=== PATIENT | female | born 1995 | race African-American/Black ===

== ENCOUNTER 2018-08-29 14:34 | Inpatient (IN) | payer BC, OTHER ==
[~2018-08-29] VITALS: Ht 170.2 cm; Wt 124.7 kg
[2018-08-29 15:34] LABS: Urine Bacteria NONE SEEN /hpf (None Seen); Urine Blood Negative /uL (Negative); Urine Specific Gravity 1.027 (1.001-1.035); Urine WBC 7 /hpf (0 - 5)
[2018-08-29 15:39] LABS: Albumin 4.2 g/dL (3.4-5.0); BUN/Creatinine Ratio 6.6; Calcium 9.8 mg/dL (8.5-10.1)
[2018-08-29 15:42] LABS: Urine Budding Yeast Few /hpf (None Seen)
[2018-08-29 15:48] LABS: Bilirubin, Total 0.9 mg/dL (0.2-1.0)
[2018-08-29 15:57] LABS: Basophils # (auto) 0 uL; Basophils % (auto) 0.4 % (0.0-2.0); Eosinophils # (auto) 0.1 uL; Eosinophils % (auto) 0.5 % (0.0-7.0); Hematocrit 48.9 % (36.0-46.0); Hemoglobin 16.4 g/dL (12.2-16.2); Lymphocytes # (auto) 2.6 uL; Lymphocytes % (auto) 20.7 % (10.0-50.0); Mean Corpuscular Hemoglobin 27.7 pg (28.0-32.0); Mean Corpuscular Hgb Conc. 33.6 g/dL (32.0-36.0); Mean Corpuscular Volume 82.6 fL (80.0-100.0); Monocytes # (auto) 0.8 uL; Monocytes % (auto) 6.3 % (0.0-12.0); Neutrophils % (auto) 72.1 % (37.0-80.0); Nucleated Red Blood Cells % 0.2 %; Platelet Count (auto) 149 10^3/uL (140-450); Red Blood Cells 5.92 10^6/uL (4.0-5.20); Red Cell Distribution Width 13.4 % (11.8-14.3); White Blood Cell 12.5 10^3/uL (4.4-10.8)
[2018-08-29] MEDS ORDERED: SODIUM CHLORIDE 0.9% 1,000 ML IV ONE ×2 (16:04)
[2018-08-29] MEDS ORDERED: InsuLIN REG 1unit/0.01ml Soln (100units/ml) IV ONE (16:15)
[2018-08-29 16:30] LABS: INR 0.97 (0.9-1.15); Prothrombin Time 10.4 sec (9.27-12.13)
[2018-08-29] MEDS ORDERED: PIPERACILLIN-TAZOB 3.375GM 100 ML IV ONE (17:15)
[2018-08-29] MEDS ORDERED: NITROGLYCERIN 0.4 MG SL TAB SL PRN (18:00)
[2018-08-29] MEDS ORDERED: MORPHINE SULFATE 4 MG/ML SYR/VIAL IV PRN (18:00)
[2018-08-29] MEDS ORDERED: TEMAZEPAM 15 MG CAP PO PRN (18:00)
[2018-08-29] MEDS ORDERED: DEXTROSE (50%) 50ML SYRG IV PRN (18:00)
[2018-08-29] MEDS ORDERED: ACETAMINOPHEN 500 MG TAB PO PRN (18:00)
[2018-08-29] MEDS ORDERED: ONDANSETRON HCL 4 MG/2 ML VIAL IV PRN (18:00)
[2018-08-29] MEDS ORDERED: cefTRIAXone 1GM/50ML D5W 50 ML IV ONE (18:00)
[2018-08-29] MEDS ORDERED: LORazepam 0.5 MG TAB PO PRN (18:00)
[2018-08-29] MEDS ORDERED: LACTULOSE 20Gm/30ML SOLN PO PRN (18:00)
[2018-08-29 18:33] LABS: Amylase 74 U/L (25-115); Lipase 210 U/L (73-393)
[2018-08-29] MEDS: SODIUM CHLORIDE 0.9% 1,000 ML IV SCH (19:47)
[2018-08-29] MEDS: InsuLIN REG 1unit/0.01ml Soln (100units/ml) SC SCH (20:00)
[2018-08-29] MEDS: ACCU-CHEK COMFORT CURVE STRIP VI SCH (20:01)
[2018-08-29 21:48] VITALS: BP 127/89
[2018-08-29] MEDS: INSULIN LANTUS (GLARGINE) 1 /0.01ml (100units/ml) SC SCH (22:15)
[2018-08-30] MEDS: ACCU-CHEK COMFORT CURVE STRIP VI SCH ×3 (00:22→07:57)
[2018-08-30] MEDS: InsuLIN REG 1unit/0.01ml Soln (100units/ml) SC SCH ×3 (00:22→07:58)
[2018-08-30] MEDS: SODIUM CHLORIDE 0.9% 1,000 ML IV SCH ×2 (00:23→07:58)
[2018-08-30 00:53] VITALS: BP 127/89
[2018-08-30] MEDS ORDERED: INSLANTI SC (04:36)
[2018-08-30 04:45] VITALS: BP 130/78
[2018-08-30 05:48] LABS: Basophils # (auto) 0.1 uL; Basophils % (auto) 0.6 % (0.0-2.0); Eosinophils # (auto) 0.1 uL; Eosinophils % (auto) 1.2 % (0.0-7.0); Hematocrit 42.9 % (36.0-46.0); Hemoglobin 14.8 g/dL (12.2-16.2); Lymphocytes # (auto) 2.4 uL; Lymphocytes % (auto) 26.6 % (10.0-50.0); Mean Corpuscular Hemoglobin 28.3 pg (28.0-32.0); Mean Corpuscular Hgb Conc. 34.5 g/dL (32.0-36.0); Mean Corpuscular Volume 81.9 fL (80.0-100.0); Monocytes # (auto) 0.7 uL; Monocytes % (auto) 7.6 % (0.0-12.0); Neutrophils # (auto) 5.8 uL; Nucleated Red Blood Cells % 0.1 %; Platelet Count (auto) 107 10^3/uL (140-450); Red Blood Cells 5.24 10^6/uL (4.0-5.20); Red Cell Distribution Width 13.4 % (11.8-14.3)
[2018-08-30 06:13] LABS: Cholesterol 253 mg/dL (< 200)
[2018-08-30 06:15] LABS: HDL Cholesterol 39 mg/dL (40-59); LDL Cholesterol 182 mg/dL (< 100); Triglycerides 306 mg/dL (< 150)
[2018-08-30 09:00] VITALS: BP 133/69
[2018-08-30] MEDS ORDERED: cefTRIAXone 1GM/50ML D5W 50 ML IV SCH (09:00)
[2018-08-30] MEDS ORDERED: PANTOPRAZOLE 40 MG TAB PO SCH (10:00)
[2018-08-30] MEDS: INSULIN LANTUS (GLARGINE) 1 /0.01ml (100units/ml) SC SCH (10:24)
== END 2018-08-30 10:55 | disposition home or self-care (01) | DRG 638 ==
LOC: ER 14:34 → TELE 14:35 → TELE-WESTW 20:10
PROVIDERS: ADMIT Internal Medicine; ATTEND Internal Medicine
DX: E11.65 Type 2 diabetes mellitus with hyperglycemia (principal); N30.01 Acute cystitis with hematuria; Z68.41 Body mass index [BMI] 40.0-44.9, adult; E66.01 Morbid (severe) obesity due to excess calories; J45.909 Unspecified asthma, uncomplicated; I10 Essential (primary) hypertension; Z82.49 Family history of ischemic heart disease and other diseases of the circulatory system; Z82.5 Family history of asthma and other chronic lower respiratory diseases; Z83.3 Family history of diabetes mellitus; Z91.19 Patient's noncompliance with other medical treatment and regimen
CPT/HCPCS: 36415; 71046; 80053; 80061; 81001; 82010; 82150; 82962; 83036; 83690; 84484; 85025; 85610; 85652; 85730; 87040; 87081; 87086; 96365; 96375; G0378; J0696; J1815; J2543

== ENCOUNTER 2019-03-02 07:17 | Emergency (ER) | payer BC, OTHER ==
[~2019-03-02] VITALS: Ht 162.6 cm; Wt 120.2 kg
[~2019-03-02 07:17] MED LIST: INSLANTI SC
[2019-03-02 08:11] LABS: Basophils # (auto) 0.1 uL; Basophils % (auto) 0.6 % (0.0-2.0); Eosinophils # (auto) 0 uL; Eosinophils % (auto) 0.5 % (0.0-7.0); Hematocrit 46.8 % (36.0-46.0); Hemoglobin 15.7 g/dL (12.2-16.2); Lymphocytes % (auto) 11.6 % (10.0-50.0); Mean Corpuscular Hemoglobin 27.7 pg (28.0-32.0); Mean Corpuscular Hgb Conc. 33.5 g/dL (32.0-36.0); Mean Corpuscular Volume 82.8 fL (80.0-100.0); Monocytes # (auto) 0.4 uL; Monocytes % (auto) 4.2 % (0.0-12.0); Neutrophils # (auto) 7.4 uL; Neutrophils % (auto) 83.1 % (37.0-80.0); Platelet Count (auto) 132 10^3/uL (140-450); Red Blood Cells 5.66 10^6/uL (4.0-5.20); Red Cell Distribution Width 13.5 % (11.8-14.3); White Blood Cell 8.9 10^3/uL (4.4-10.8)
[2019-03-02] MEDS ORDERED: SODIUM CHLORIDE 0.9% 1,000 ML IVB ONE (08:18)
[2019-03-02 08:23] LABS: Potassium 4.1 mmol/L (3.5-5.1)
[2019-03-02 08:26] LABS: Albumin 3.9 g/dL (3.4-5.0); Calcium 9.2 mg/dL (8.5-10.1)
[2019-03-02 08:28] LABS: BUN/Creatinine Ratio 8.6
[2019-03-02] MEDS ORDERED: KETOROLAC TROMETH 30 MG/ML 1ML VIAL IV ONE (08:30)
[2019-03-02] MEDS ORDERED: PROMETHAZINE HCL 25 MG/ML 1ML IV ONE (08:30)
[2019-03-02] MEDS ORDERED: PROMETHAZINE HCL 25 MG/ML 1ML IV PRN (08:30)
[2019-03-02 08:31] LABS: Bilirubin, Total 0.5 mg/dL (0.2-1.0); Total Protein 8.3 g/dL (6.4-8.2)
[2019-03-02 09:26] LABS: Urine Bacteria NONE SEEN /hpf (None Seen); Urine Blood Negative /uL (Negative); Urine Specific Gravity 1.024 (1.001-1.035); Urine WBC 2 /hpf (0 - 5)
[2019-03-02] MEDS ORDERED: InsuLIN REG 1unit/0.01ml Soln (100units/ml) IV ONE (11:45)
[2019-03-02 13:04] VITALS: BP 93/61
[2019-03-02] MEDS ORDERED: INSULIN LISPRO (HUMAN) 100 UNITS/ML ML SC ONE (14:00)
== END 2019-03-02 15:08 | disposition home or self-care (01) ==
LOC: ER 07:17
DX: K52.9 Noninfective gastroenteritis and colitis, unspecified (principal); E11.65 Type 2 diabetes mellitus with hyperglycemia; I10 Essential (primary) hypertension; E66.9 Obesity, unspecified; J45.909 Unspecified asthma, uncomplicated; E11.9 Type 2 diabetes mellitus without complications; Z68.42 Body mass index [BMI] 45.0-49.9, adult
CPT/HCPCS: 36415; 80053; 81001; 81025; 82150; 82962; 83690; 83735; 85025; 96361; 96372; 96374; 96375; 99283; J1815; J1885; J2550; J7030

== ENCOUNTER 2019-12-03 17:06 | Emergency (ER) | payer BC, OTHER ==
[~2019-12-03] VITALS: Ht 167.6 cm; Wt 117.9 kg
[2019-12-03 17:15] VITALS: BP 126/88
[2019-12-03] MEDS: KETOROLAC TROMETH 15 mg/ml 1ML VL IM ONE (20:19)
[2019-12-03] MEDS: LIDOCAINE 1% HCL (LOCAL ANESTH.) INJ 20ML MDV IJ ONE (20:20)
[2019-12-03] MEDS: cefTRIAXone SOD 1,000 MG VL IM ONE (20:20)
== END 2019-12-03 20:58 | disposition home or self-care (01) ==
LOC: ER 17:13
DX: L02.31 Cutaneous abscess of buttock (principal); E11.9 Type 2 diabetes mellitus without complications; I10 Essential (primary) hypertension; J45.909 Unspecified asthma, uncomplicated
CPT/HCPCS: 96372; 99283; J0696; J1885; J2001

== ENCOUNTER → 2019-12-05 | Outpatient (CLI) | payer BC, OTHER ==
[2019-12-05 11:50] LABS: Cholesterol 229 mg/dL (< 200); HDL Cholesterol 37 mg/dL (40-59); LDL Cholesterol 160 mg/dL (< 100); Triglycerides 225 mg/dL (< 150)
== END | disposition home or self-care (01) ==
LOC: LAB 10:18
PROVIDERS: ATTEND Internal Medicine
DX: E11.9 Type 2 diabetes mellitus without complications (principal)
CPT/HCPCS: 36415; 80061; 82043; 83036; 84443

== ENCOUNTER 2020-12-10 16:14 | Inpatient (IN) | payer BC, MEDICAID, OTHER ==
[~2020-12-10] VITALS: Ht 167.6 cm; Wt 120.1 kg
[2020-12-10 17:03] LABS: Basophils # (auto) 0.1 10 ^3/uL (0-0.2); Eosinophils # (auto) 0 10 ^3/uL (0-0.8); Lymphocytes # (auto) 1.3 10 ^3/uL (0.4-5.4); Nucleated Red Blood Cells % 0.1 %
[2020-12-10 17:05] LABS: Basophils % (auto) 0.7 % (0.0-2.0); Eosinophils % (auto) 0.2 % (0.0-7.0); Hematocrit 38.4 % (36.0-46.0); Lymphocytes % (auto) 8.1 % (10.0-50.0); Mean Corpuscular Hemoglobin 26.8 pg (28.0-32.0); Mean Corpuscular Hgb Conc. 33.9 g/dL (32.0-36.0); Mean Corpuscular Volume 79.1 fL (80.0-100.0); Monocytes # (auto) 1.3 10 ^3/uL (0-1.3); Monocytes % (auto) 7.9 % (0.0-12.0); Neutrophils # (auto) 13.7 10 ^3/uL (1.6-8.6); Neutrophils % (auto) 83.1 % (37.0-80.0); Platelet Count (auto) 112 10^3/uL (140-450); Red Blood Cells 4.86 10^6/uL (4.0-5.20); Red Cell Distribution Width 13.4 % (11.8-14.3); White Blood Cell 16.5 10^3/uL (4.4-10.8)
[2020-12-10] MEDS ORDERED: ONDANSETRON HCL 4 MG/2 ML VIAL IV ONE (17:15)
[2020-12-10] MEDS ORDERED: KETOROLAC TROMETH 30 MG/ML 1ML VIAL IV ONE (17:15)
[2020-12-10] MEDS ORDERED: SODIUM CHLORIDE 0.9% 1,000 ML IV ONE (17:15)
[2020-12-10] MEDS ORDERED: fentaNYL CITRATE 100 MCG/2 ML VL IV ONE (17:15)
[2020-12-10 17:17] LABS: Albumin 2.9 g/dL (3.4-5.0); Potassium 4.3 mmol/L (3.5-5.1)
[2020-12-10 17:19] LABS: Bilirubin, Total 0.6 mg/dL (0.2-1.0); Total Protein 7.7 g/dL (6.4-8.2)
[2020-12-10 17:33] LABS: Urine Bacteria FEW /hpf (None Seen); Urine Blood TRACE /uL (Negative); Urine Specific Gravity 1.023 (1.001-1.035); Urine WBC 73 /hpf (0 - 5)
[2020-12-10] MEDS ORDERED: IOHEXOL 300 MG/ML 100ML BOTTLE IJ ONE (17:41)
[2020-12-10] MEDS ORDERED: PIPERACILLIN-TAZOB 3.375GM 100 ML IV ONE (18:30)
[2020-12-10] MEDS ORDERED: SODIUM CHLORIDE 0.9% 3,000 ML IV ONE (19:15)
[2020-12-10] MEDS ORDERED: MORPHINE SULF INJ 2 MG/ML SYRINGE 1ML IV PRN (19:15)
[2020-12-10] MEDS ORDERED: DOCUSATE CALCIUM 240 MG CAP PO PRN (19:15)
[2020-12-10] MEDS ORDERED: LORazepam 0.5 MG TAB PO PRN (19:15)
[2020-12-10] MEDS ORDERED: TETANUS-DIPTH-ACEL PERTUSSIS 0.5ML SYR Tdap IM ONE (19:15)
[2020-12-10] MEDS ORDERED: VANCOMYCIN PER PHARMACY 0 MG IV SCH (19:15)
[2020-12-10] MEDS ORDERED: NITROGLYCERIN 0.4 MG SL TAB SL PRN (19:15)
[2020-12-10] MEDS ORDERED: ALBUTEROL SULF 2.5 MG/0.5ML(0.5%) NEB SOLN NEB PRN (19:15)
[2020-12-10] MEDS ORDERED: DEXTROSE (50%) 50ML SYRG IV PRN (19:15)
[2020-12-10] MEDS ORDERED: hydrALAZINE HCL 20 MG/ML VL IV PRN (19:15)
[2020-12-10] MEDS ORDERED: ACETAMINOPHEN 500 MG TAB PO PRN (19:15)
[2020-12-10] MEDS: ACCU-CHEK COMFORT CURVE STRIP VI SCH (20:20)
[2020-12-10] MEDS: InsuLIN REG 1unit/0.01ml Soln (100units/ml) SC SCH (20:25)
[2020-12-10 22:00] VITALS: BP 115/68
[2020-12-10] MEDS ORDERED: VANCOMYCIN 1GM/250ML 250 ML IV ONE (22:00)
[2020-12-10] MEDS: metroNIDAZOLE 500MG/100ML 100 ML IV SCH (22:42)
[2020-12-11] MEDS ORDERED: ATOR10TA52 PO (00:15)
[2020-12-11] MEDS ORDERED: INSLANTI SC (00:15)
[2020-12-11] MEDS ORDERED: INS7030I SC (00:15)
[2020-12-11] MEDS: ACCU-CHEK COMFORT CURVE STRIP VI SCH ×6 (00:23→20:46)
[2020-12-11] MEDS: InsuLIN REG 1unit/0.01ml Soln (100units/ml) SC SCH ×7 (00:24→20:46)
[2020-12-11] MEDS: HYDROmorphone HCL 2 MG/ML VL IV PRN ×4 (01:52→18:51)
[2020-12-11 05:40] LABS: Basophils # (auto) 0.1 10 ^3/uL (0-0.2); Basophils % (auto) 0.4 % (0.0-2.0); Eosinophils # (auto) 0.1 10 ^3/uL (0-0.8); Lymphocytes # (auto) 1.9 10 ^3/uL (0.4-5.4); Mean Corpuscular Volume 79.1 fL (80.0-100.0); Neutrophils # (auto) 11.7 10 ^3/uL (1.6-8.6); Red Cell Distribution Width 13.3 % (11.8-14.3); White Blood Cell 15.2 10^3/uL (4.4-10.8)
[2020-12-11 05:42] LABS: Eosinophils % (auto) 0.8 % (0.0-7.0); Hematocrit 33.7 % (36.0-46.0); Hemoglobin 11.6 g/dL (12.2-16.2); Lymphocytes % (auto) 12.5 % (10.0-50.0); Mean Corpuscular Hemoglobin 27.2 pg (28.0-32.0); Mean Corpuscular Hgb Conc. 34.4 g/dL (32.0-36.0); Monocytes # (auto) 1.5 10 ^3/uL (0-1.3); Monocytes % (auto) 9.7 % (0.0-12.0); Neutrophils % (auto) 76.6 % (37.0-80.0); Platelet Count (auto) 111 10^3/uL (140-450); Red Blood Cells 4.26 10^6/uL (4.0-5.20)
[2020-12-11] MEDS: PIPERACILLIN-TAZO 4.5GM 100 ML IV SCH ×3 (05:52→23:00)
[2020-12-11] MEDS: metroNIDAZOLE 500MG/100ML 100 ML IV SCH ×3 (05:52→21:30)
[2020-12-11 05:56] LABS: Albumin 2.3 g/dL (3.4-5.0); BUN/Creatinine Ratio 3.8; Calcium 8.4 mg/dL (8.5-10.1); Potassium 3.7 mmol/L (3.5-5.1)
[2020-12-11 05:59] LABS: Bilirubin, Total 0.5 mg/dL (0.2-1.0); INR 1.06 (0.9-1.15); Partial Thromboplastin Time 24.3 sec (23.0-31.2); Total Protein 6.1 g/dL (6.4-8.2)
[2020-12-11 07:53] VITALS: BP 86/46
[2020-12-11] MEDS: VANCOMYCIN 1GM/250ML 250 ML IV SCH ×2 (10:46→22:11)
[2020-12-11] MEDS: PANTOPRAZOLE 40 MG TAB PO SCH (10:47)
[2020-12-11] MEDS: ENOXAPARIN SOD 40 MG/0.4 ML SYRINGE SC SCH (10:47)
[2020-12-11 16:00] VITALS: BP 108/72
[2020-12-11] MEDS: Glucerna Carbsteady SHAKE Vanilla 8oz PO SCH (18:34)
[2020-12-11 22:00] VITALS: BP 101/51
[2020-12-12] MEDS: HYDROmorphone HCL 2 MG/ML VL IV PRN ×4 (00:07→19:55)
[2020-12-12] MEDS: ACCU-CHEK COMFORT CURVE STRIP VI SCH ×7 (00:19→23:57)
[2020-12-12] MEDS: InsuLIN REG 1unit/0.01ml Soln (100units/ml) SC SCH ×7 (00:22→20:18)
[2020-12-12 05:00] VITALS: BP 112/68
[2020-12-12] MEDS: metroNIDAZOLE 500MG/100ML 100 ML IV SCH ×3 (05:30→23:49)
[2020-12-12 05:47] LABS: Basophils # (auto) 0.1 10 ^3/uL (0-0.2); Basophils % (auto) 0.5 % (0.0-2.0); Eosinophils # (auto) 0.1 10 ^3/uL (0-0.8); Hemoglobin 11.7 g/dL (12.2-16.2); Monocytes # (auto) 1.3 10 ^3/uL (0-1.3); Neutrophils # (auto) 10.3 10 ^3/uL (1.6-8.6)
[2020-12-12 05:48] LABS: Eosinophils % (auto) 0.8 % (0.0-7.0); Hematocrit 34.4 % (36.0-46.0); Lymphocytes # (auto) 1.5 10 ^3/uL (0.4-5.4); Lymphocytes % (auto) 11.6 % (10.0-50.0); Mean Corpuscular Hemoglobin 26.7 pg (28.0-32.0); Mean Corpuscular Volume 78.5 fL (80.0-100.0); Monocytes % (auto) 9.8 % (0.0-12.0); Neutrophils % (auto) 77.3 % (37.0-80.0); Platelet Count (auto) 131 10^3/uL (140-450); Red Blood Cells 4.38 10^6/uL (4.0-5.20); Red Cell Distribution Width 13.6 % (11.8-14.3); White Blood Cell 13.3 10^3/uL (4.4-10.8)
[2020-12-12 06:06] LABS: Albumin 2.3 g/dL (3.4-5.0); BUN/Creatinine Ratio 2.6; Calcium 8.7 mg/dL (8.5-10.1)
[2020-12-12 06:09] LABS: Bilirubin, Total 0.7 mg/dL (0.2-1.0); Total Protein 6.4 g/dL (6.4-8.2)
[2020-12-12] MEDS: PIPERACILLIN-TAZO 4.5GM 100 ML IV SCH ×3 (06:53→23:50)
[2020-12-12] MEDS ORDERED: INSULIN LANTUS (GLARGINE) 1 /0.01ml (100units/ml) SC SCH (07:00)
[2020-12-12] MEDS: Glucerna Carbsteady SHAKE Vanilla 8oz PO SCH ×3 (07:38→18:04)
[2020-12-12 08:00] VITALS: BP 125/67
[2020-12-12] MEDS: VANCOMYCIN 1GM/250ML 250 ML IV SCH ×2 (10:32→18:04)
[2020-12-12] MEDS: PANTOPRAZOLE 40 MG TAB PO SCH (10:33)
[2020-12-12] MEDS: ENOXAPARIN SOD 40 MG/0.4 ML SYRINGE SC SCH (10:33)
[2020-12-12] MEDS ORDERED: DEXTROSE (50%) 50ML SYRG IV PRN (11:45)
[2020-12-12] MEDS: INSULIN LANTUS (GLARGINE) 1 /0.01ml (100units/ml) SC SCH (12:14)
[2020-12-12 16:00] VITALS: BP 105/62
[2020-12-12 22:00] VITALS: BP 104/51
[2020-12-13] MEDS: HYDROmorphone HCL 2 MG/ML VL IV PRN ×4 (01:00→16:43)
[2020-12-13] MEDS: VANCOMYCIN 1GM/250ML 250 ML IV SCH ×2 (03:52→16:25)
[2020-12-13] MEDS: ACCU-CHEK COMFORT CURVE STRIP VI SCH ×5 (03:52→20:00)
[2020-12-13] MEDS: InsuLIN REG 1unit/0.01ml Soln (100units/ml) SC SCH ×6 (03:54→20:00)
[2020-12-13 05:00] VITALS: BP 102/54
[2020-12-13] MEDS: metroNIDAZOLE 500MG/100ML 100 ML IV SCH ×3 (06:00→21:38)
[2020-12-13 06:46] LABS: Basophils # (auto) 0.1 10 ^3/uL (0-0.2); Basophils % (auto) 0.6 % (0.0-2.0); Eosinophils # (auto) 0.1 10 ^3/uL (0-0.8); Eosinophils % (auto) 0.7 % (0.0-7.0); Hematocrit 33.9 % (36.0-46.0); Hemoglobin 11.8 g/dL (12.2-16.2); Lymphocytes # (auto) 1.5 10 ^3/uL (0.4-5.4); Lymphocytes % (auto) 10.2 % (10.0-50.0); Mean Corpuscular Hemoglobin 27.5 pg (28.0-32.0); Mean Corpuscular Hgb Conc. 34.9 g/dL (32.0-36.0); Mean Corpuscular Volume 78.6 fL (80.0-100.0); Monocytes # (auto) 1.6 10 ^3/uL (0-1.3); Monocytes % (auto) 11.1 % (0.0-12.0); Neutrophils # (auto) 11.4 10 ^3/uL (1.6-8.6); Neutrophils % (auto) 77.4 % (37.0-80.0); Red Blood Cells 4.31 10^6/uL (4.0-5.20); Red Cell Distribution Width 13.1 % (11.8-14.3); White Blood Cell 14.7 10^3/uL (4.4-10.8)
[2020-12-13] MEDS: INSULIN LANTUS (GLARGINE) 1 /0.01ml (100units/ml) SC SCH ×2 (06:55→07:58)
[2020-12-13 07:11] LABS: Calcium 8.2 mg/dL (8.5-10.1); Potassium 3.7 mmol/L (3.5-5.1)
[2020-12-13 07:13] LABS: BUN/Creatinine Ratio 1.2
[2020-12-13 07:51] VITALS: BP 102/54
[2020-12-13 07:55] LABS: Platelet Count (auto) 142 10^3/uL (140-450)
[2020-12-13] MEDS: PANTOPRAZOLE 40 MG TAB PO SCH (07:59)
[2020-12-13 08:00] VITALS: BP 111/71
[2020-12-13] MEDS: Glucerna Carbsteady SHAKE Vanilla 8oz PO SCH ×3 (08:00→17:45)
[2020-12-13] MEDS: ENOXAPARIN SOD 40 MG/0.4 ML SYRINGE SC SCH (08:03)
[2020-12-13] MEDS: PIPERACILLIN-TAZO 4.5GM 100 ML IV SCH ×2 (10:14→17:44)
[2020-12-13] MEDS ORDERED: LEVOTHYROXINE SODIUM 50 MCG TAB PO ONE (11:30)
[2020-12-13] MEDS ORDERED: GADOTERATE MEG 7.5 MMOL/15ml INJ (0.5MMOL/ml) IV ONE (13:13)
[2020-12-13 16:00] VITALS: BP 115/68
[2020-12-13] MEDS: ONDANSETRON HCL 4 MG/2 ML VIAL IV PRN ×2 (16:44→22:45)
[2020-12-13 20:00] VITALS: BP 118/65
[2020-12-13 22:00] VITALS: BP 118/65
[2020-12-14] MEDS: PIPERACILLIN-TAZO 4.5GM 100 ML IV SCH ×3 (00:07→16:24)
[2020-12-14] MEDS: ACCU-CHEK COMFORT CURVE STRIP VI SCH ×6 (00:13→20:08)
[2020-12-14] MEDS: InsuLIN REG 1unit/0.01ml Soln (100units/ml) SC SCH ×6 (00:13→20:04)
[2020-12-14] MEDS: VANCOMYCIN 1GM/250ML 250 ML IV SCH (00:56)
[2020-12-14 06:13] LABS: Eosinophils # (auto) 0.1 10 ^3/uL (0-0.8); Eosinophils % (auto) 0.5 % (0.0-7.0); Mean Corpuscular Hgb Conc. 33.9 g/dL (32.0-36.0); Monocytes # (auto) 1.7 10 ^3/uL (0-1.3); Red Cell Distribution Width 13.6 % (11.8-14.3)
[2020-12-14 06:15] LABS: Basophils # (auto) 0 10 ^3/uL (0-0.2); Basophils % (auto) 0.3 % (0.0-2.0); Hematocrit 34.7 % (36.0-46.0); Hemoglobin 11.8 g/dL (12.2-16.2); Lymphocytes # (auto) 1.2 10 ^3/uL (0.4-5.4); Lymphocytes % (auto) 8.5 % (10.0-50.0); Mean Corpuscular Hemoglobin 26.9 pg (28.0-32.0); Mean Corpuscular Volume 79.2 fL (80.0-100.0); Monocytes % (auto) 11.9 % (0.0-12.0); Neutrophils # (auto) 11.1 10 ^3/uL (1.6-8.6); Neutrophils % (auto) 78.8 % (37.0-80.0); Nucleated Red Blood Cells % 0.2 %; Platelet Count (auto) 162 10^3/uL (140-450); Red Blood Cells 4.38 10^6/uL (4.0-5.20); White Blood Cell 14.2 10^3/uL (4.4-10.8)
[2020-12-14 06:36] LABS: Potassium 3.9 mmol/L (3.5-5.1)
[2020-12-14 06:49] LABS: BUN/Creatinine Ratio 1.7; Calcium 8.8 mg/dL (8.5-10.1)
[2020-12-14 08:00] VITALS: BP 115/77
[2020-12-14] MEDS: Glucerna Carbsteady SHAKE Vanilla 8oz PO SCH ×3 (08:00→18:00)
[2020-12-14] MEDS: LEVOTHYROXINE SODIUM 50 MCG TAB PO SCH (08:12)
[2020-12-14] MEDS: metroNIDAZOLE 500MG/100ML 100 ML IV SCH ×3 (08:12→22:00)
[2020-12-14] MEDS: INSULIN LANTUS (GLARGINE) 1 /0.01ml (100units/ml) SC SCH (08:14)
[2020-12-14] MEDS: PANTOPRAZOLE 40 MG TAB PO SCH (09:28)
[2020-12-14] MEDS: ENOXAPARIN SOD 40 MG/0.4 ML SYRINGE SC SCH (09:29)
[2020-12-14 16:00] VITALS: BP 109/64
[2020-12-14] MEDS: HYDROcodone-ACET 5/325MG TAB PO PRN (16:01)
[2020-12-14 22:00] VITALS: BP 113/74
[2020-12-15] MEDS: PIPERACILLIN-TAZO 4.5GM 100 ML IV SCH ×2 (00:20→08:00)
[2020-12-15] MEDS: InsuLIN REG 1unit/0.01ml Soln (100units/ml) SC SCH ×7 (04:00→23:28)
[2020-12-15] MEDS: ACCU-CHEK COMFORT CURVE STRIP VI SCH ×7 (04:49→23:28)
[2020-12-15] MEDS: metroNIDAZOLE 500MG/100ML 100 ML IV SCH ×3 (06:00→21:16)
[2020-12-15] MEDS: LEVOTHYROXINE SODIUM 50 MCG TAB PO SCH (06:23)
[2020-12-15] MEDS: INSULIN LANTUS (GLARGINE) 1 /0.01ml (100units/ml) SC SCH (06:26)
[2020-12-15 07:23] LABS: Basophils # (auto) 0 10 ^3/uL (0-0.2); Basophils % (auto) 0.3 % (0.0-2.0); Eosinophils # (auto) 0.1 10 ^3/uL (0-0.8); Eosinophils % (auto) 0.4 % (0.0-7.0); Hematocrit 36.3 % (36.0-46.0); Hemoglobin 12.4 g/dL (12.2-16.2); Lymphocytes # (auto) 1.7 10 ^3/uL (0.4-5.4); Lymphocytes % (auto) 10.3 % (10.0-50.0); Mean Corpuscular Hemoglobin 27.1 pg (28.0-32.0); Mean Corpuscular Hgb Conc. 34.1 g/dL (32.0-36.0); Mean Corpuscular Volume 79.4 fL (80.0-100.0); Monocytes # (auto) 1.8 10 ^3/uL (0-1.3); Monocytes % (auto) 10.9 % (0.0-12.0); Neutrophils # (auto) 12.9 10 ^3/uL (1.6-8.6); Neutrophils % (auto) 78.1 % (37.0-80.0); Platelet Count (auto) 196 10^3/uL (140-450); Red Blood Cells 4.58 10^6/uL (4.0-5.20); Red Cell Distribution Width 13.7 % (11.8-14.3); White Blood Cell 16.5 10^3/uL (4.4-10.8)
[2020-12-15 08:00] VITALS: BP 108/57
[2020-12-15] MEDS: Glucerna Carbsteady SHAKE Vanilla 8oz PO SCH ×3 (08:00→18:21)
[2020-12-15] MEDS ORDERED: fentaNYL CITRATE 100 MCG/2 ML VL ONE (10:09)
[2020-12-15] MEDS ORDERED: GLYCOPYRROLATE 0.2 MG/ML 1ML VIAL ONE (10:10)
[2020-12-15] MEDS ORDERED: KETOROLAC TROMETH 30 MG/ML 1ML VIAL ONE (10:10)
[2020-12-15] MEDS ORDERED: PROPOFOL 10 MG/ML 20 ML IV ONE (10:10)
[2020-12-15] MEDS ORDERED: MIDAZOLAM HCL 1MG/1ML-2 ML VIAL ONE (10:10)
[2020-12-15] MEDS ORDERED: LIDOCAINE 2% (LOCAL ANESTH.) PF 5ml SDV ONE (10:10)
[2020-12-15] MEDS ORDERED: ONDANSETRON HCL 4 MG/2 ML VIAL ONE (10:10)
[2020-12-15] MEDS ORDERED: ceFAZolin 1GM VL ONE (10:41)
[2020-12-15] MEDS ORDERED: HYDROmorphone HCL 2 MG/ML VL ONE (10:48)
[2020-12-15] MEDS ORDERED: ACCU-CHEK COMFORT CURVE STRIP VI ONE (11:45)
[2020-12-15] MEDS ORDERED: ONDANSETRON HCL 4 MG/2 ML VIAL IV PRN (11:45)
[2020-12-15] MEDS ORDERED: HYDROmorphone HCL 2 MG/ML VL IV PRN (11:45)
[2020-12-15] MEDS: ENOXAPARIN SOD 40 MG/0.4 ML SYRINGE SC SCH (13:32)
[2020-12-15 16:22] VITALS: BP 108/76
[2020-12-15] MEDS: PANTOPRAZOLE 40 MG TAB PO SCH (17:30)
[2020-12-15] MEDS: LINEZOLID 600MG/300ML 300 ML IV SCH (20:05)
[2020-12-15] MEDS: MEROPENEM 1GM IVPB 100 ML IV SCH (21:15)
[2020-12-15 22:00] VITALS: BP 106/71
[2020-12-16] MEDS: ACCU-CHEK COMFORT CURVE STRIP VI SCH ×5 (03:47→20:00)
[2020-12-16] MEDS: InsuLIN REG 1unit/0.01ml Soln (100units/ml) SC SCH ×5 (03:48→20:00)
[2020-12-16 05:00] VITALS: BP 97/57
[2020-12-16] MEDS: metroNIDAZOLE 500MG/100ML 100 ML IV SCH (05:33)
[2020-12-16] MEDS: MEROPENEM 1GM IVPB 100 ML IV SCH ×3 (05:34→22:00)
[2020-12-16 06:26] LABS: Basophils # (auto) 0.1 10 ^3/uL (0-0.2); Basophils % (auto) 0.4 % (0.0-2.0); Eosinophils # (auto) 0.1 10 ^3/uL (0-0.8); Eosinophils % (auto) 0.5 % (0.0-7.0); Hematocrit 34.9 % (36.0-46.0); Hemoglobin 11.4 g/dL (12.2-16.2); Lymphocytes # (auto) 1.9 10 ^3/uL (0.4-5.4); Lymphocytes % (auto) 11.2 % (10.0-50.0); Mean Corpuscular Hemoglobin 26.3 pg (28.0-32.0); Mean Corpuscular Hgb Conc. 32.7 g/dL (32.0-36.0); Mean Corpuscular Volume 80.4 fL (80.0-100.0); Monocytes # (auto) 1.6 10 ^3/uL (0-1.3); Monocytes % (auto) 9.7 % (0.0-12.0); Neutrophils % (auto) 78.2 % (37.0-80.0); Platelet Count (auto) 190 10^3/uL (140-450); Red Blood Cells 4.35 10^6/uL (4.0-5.20); Red Cell Distribution Width 13.7 % (11.8-14.3); White Blood Cell 16.7 10^3/uL (4.4-10.8)
[2020-12-16] MEDS: LEVOTHYROXINE SODIUM 50 MCG TAB PO SCH (06:26)
[2020-12-16] MEDS: INSULIN LANTUS (GLARGINE) 1 /0.01ml (100units/ml) SC SCH (06:35)
[2020-12-16] MEDS: LINEZOLID 600MG/300ML 300 ML IV SCH ×2 (08:56→20:00)
[2020-12-16] MEDS: Glucerna Carbsteady SHAKE Vanilla 8oz PO SCH ×3 (08:57→18:51)
[2020-12-16] MEDS: PANTOPRAZOLE 40 MG TAB PO SCH (10:08)
[2020-12-16] MEDS: ENOXAPARIN SOD 40 MG/0.4 ML SYRINGE SC SCH (10:09)
[2020-12-16] MEDS ORDERED: levoFLOXacin 500MG 100 ML IV ONE (11:15)
[2020-12-16 13:00] VITALS: BP 106/63
[2020-12-16] MEDS: HYDROcodone-ACET 5/325MG TAB PO PRN (17:20)
[2020-12-17] VITALS: BP 115/77
[2020-12-17 01:00] VITALS: BP 115/78
[2020-12-17] MEDS: InsuLIN REG 1unit/0.01ml Soln (100units/ml) SC SCH ×6 (04:00→20:00)
[2020-12-17] MEDS: ACCU-CHEK COMFORT CURVE STRIP VI SCH ×6 (04:21→20:00)
[2020-12-17 05:00] VITALS: BP 109/66
[2020-12-17] MEDS: ONDANSETRON HCL 4 MG/2 ML VIAL IV PRN (05:31)
[2020-12-17] MEDS: HYDROcodone-ACET 5/325MG TAB PO PRN ×2 (05:32→16:00)
[2020-12-17] MEDS: MEROPENEM 1GM IVPB 100 ML IV SCH ×2 (06:10→14:13)
[2020-12-17] MEDS: INSULIN LANTUS (GLARGINE) 1 /0.01ml (100units/ml) SC SCH (07:00)
[2020-12-17] MEDS: LEVOTHYROXINE SODIUM 50 MCG TAB PO SCH (07:21)
[2020-12-17 08:00] VITALS: BP 113/70
[2020-12-17] MEDS: LINEZOLID 600MG/300ML 300 ML IV SCH ×2 (08:44→20:00)
[2020-12-17] MEDS: Glucerna Carbsteady SHAKE Vanilla 8oz PO SCH ×3 (08:44→18:12)
[2020-12-17] MEDS ORDERED: levoFLOXacin 500MG 100 ML IV SCH ×2 (10:00)
[2020-12-17] MEDS: PANTOPRAZOLE 40 MG TAB PO SCH (10:13)
[2020-12-17] MEDS: ENOXAPARIN SOD 40 MG/0.4 ML SYRINGE SC SCH (10:13)
[2020-12-17 16:00] VITALS: BP 121/76
[2020-12-17 19:58] VITALS: BP 128/76
== END 2020-12-17 20:50 | disposition home or self-care (01) | DRG 710 ==
LOC: ER 16:14 → OVERFLOW 16:15 → EAST 21:45 → CENTRAL 12-11 15:48 → EAST 12-15 07:05
PROVIDERS: ADMIT Family Medicine; ATTEND Internal Medicine
PROC: 0J990ZZ Drainage of Buttock Subcutaneous Tissue and Fascia, Open Approach (ICD-10-PCS; principal; 2020-12-15 10:25)
DX: A41.9 Sepsis, unspecified organism (principal); N17.0 Acute kidney failure with tubular necrosis; E44.0 Moderate protein-calorie malnutrition; L02.31 Cutaneous abscess of buttock; N39.0 Urinary tract infection, site not specified; Z20.822 Contact with and (suspected) exposure to COVID-19; E11.65 Type 2 diabetes mellitus with hyperglycemia; E87.1 Hypo-osmolality and hyponatremia; E66.9 Obesity, unspecified; J45.909 Unspecified asthma, uncomplicated; Z68.41 Body mass index [BMI] 40.0-44.9, adult; E78.5 Hyperlipidemia, unspecified; G47.00 Insomnia, unspecified; L03.317 Cellulitis of buttock; E03.9 Hypothyroidism, unspecified; B95.61 Methicillin susceptible Staphylococcus aureus infection as the cause of diseases classified elsewhere; I12.9 Hypertensive chronic kidney disease with stage 1 through stage 4 chronic kidney disease, or unspecified chronic kidney disease; N18.9 Chronic kidney disease, unspecified; E11.22 Type 2 diabetes mellitus with diabetic chronic kidney disease; Z79.4 Long term (current) use of insulin; Z82.61 Family history of arthritis; Z83.3 Family history of diabetes mellitus; Z82.49 Family history of ischemic heart disease and other diseases of the circulatory system; Z23 Encounter for immunization; Z79.899 Other long term (current) drug therapy
CPT/HCPCS: 36415; 71045; 72195; 74177; 80048; 80053; 80202; 81001; 82010; 82565; 82962; 83036; 83605; 83735; 84443; 84702; 85025; 85610; 85730; 87040; 87070; 87075; 87077; 87086; 87186; 87205; 87426; 90471; 96365; 96366; 96375; G0378; J0690; J1815; J1885; J1956; J2001; J2185; J2250; J2405; J2543; J2704; J3490

== ENCOUNTER 2021-06-30 12:36 | Emergency (ER) | payer MEDICAID ==
[~2021-06-30] VITALS: Ht 167.6 cm; Wt 108.9 kg
[~2021-06-30 12:36] MED LIST changes: +ATOR10TA52 PO; +INS7030I SC
[2021-06-30] MEDS ORDERED: cefTRIAXone SOD 1,000 MG VL IM ONE ×2 (16:00)
[2021-06-30 16:53] VITALS: BP 125/86
== END 2021-06-30 16:59 | disposition home or self-care (01) ==
LOC: ER 12:36
DX: J18.9 Pneumonia, unspecified organism (principal); L03.011 Cellulitis of right finger; E11.9 Type 2 diabetes mellitus without complications; I10 Essential (primary) hypertension; Z20.822 Contact with and (suspected) exposure to COVID-19
CPT/HCPCS: 36415; 71045; 87426; 96372; 99284; J0696

== ENCOUNTER 2021-11-29 09:56 | Emergency (ER) | payer MEDICAID ==
[~2021-11-29] VITALS: Ht 167.6 cm; Wt 113.4 kg
[2021-11-29 09:59] VITALS: BP 151/83
[2021-11-29] MEDS ORDERED: SODIUM CHLORIDE 0.9% 1,000 ML IV ONE (10:15)
[2021-11-29 10:44] LABS: Basophils # (auto) 0.1 10 ^3/uL (0-0.2); Eosinophils # (auto) 0 10 ^3/uL (0-0.8); Lymphocytes # (auto) 1.5 10 ^3/uL (0.4-5.4); Monocytes # (auto) 0.5 10 ^3/uL (0-1.3); Monocytes % (auto) 4.4 % (0.0-12.0); Red Blood Cells 5.87 10^6/uL (4.0-5.20)
[2021-11-29 10:46] LABS: Basophils % (auto) 0.6 % (0.0-2.0); Eosinophils % (auto) 0.1 % (0.0-7.0); Hematocrit 43.9 % (36.0-46.0); Hemoglobin 14.5 g/dL (12.2-16.2); Lymphocytes % (auto) 13.3 % (10.0-50.0); Mean Corpuscular Hemoglobin 24.7 pg (28.0-32.0); Mean Corpuscular Hgb Conc. 33.1 g/dL (32.0-36.0); Mean Corpuscular Volume 74.8 fL (80.0-100.0); Neutrophils # (auto) 9.5 10 ^3/uL (1.6-8.6); Neutrophils % (auto) 81.6 % (37.0-80.0); Nucleated Red Blood Cells % 0.1 %; Red Cell Distribution Width 15.9 % (11.8-14.3); White Blood Cell 11.6 10^3/uL (4.4-10.8)
[2021-11-29] MEDS ORDERED: InsuLIN REG 1unit/0.01ml Soln (100units/ml) IV ONE (11:00)
[2021-11-29 11:12] LABS: Calcium 9.1 mg/dL (8.5-10.1); Potassium 4.3 mmol/L (3.5-5.1)
[2021-11-29 11:16] LABS: BUN/Creatinine Ratio 8.3; Bilirubin, Total 0.8 mg/dL (0.2-1.0); Total Protein 8.6 g/dL (6.4-8.2)
[2021-11-29] MEDS ORDERED: ONDANSETRON HCL 4 MG/2 ML VIAL IV ONE (12:15)
[2021-11-29] MEDS ORDERED: DEXTROSE (50%) 50ML SYRG IV PRN (13:45)
[2021-11-29] MEDS ORDERED: ACCU-CHEK COMFORT CURVE STRIP VI SCH (16:00)
[2021-11-29] MEDS ORDERED: InsuLIN REG 1unit/0.01ml Soln (100units/ml) SC SCH (16:00)
[2021-11-29 18:36] LABS: Urine Bacteria NONE SEEN /hpf (None Seen); Urine Blood 3+ /uL (Negative); Urine Specific Gravity 1.023 (1.001-1.035); Urine WBC 57 /hpf (0 - 5)
== END 2021-11-29 18:37 | disposition left against medical advice (07) ==
LOC: ER 09:56
DX: E11.65 Type 2 diabetes mellitus with hyperglycemia (principal); I10 Essential (primary) hypertension; R10.9 Unspecified abdominal pain; R11.2 Nausea with vomiting, unspecified; Z79.4 Long term (current) use of insulin; Z79.899 Other long term (current) drug therapy
CPT/HCPCS: 36415; 74176; 80053; 81001; 82962; 83036; 84702; 85025; 87040; 96361; 96374; 96375; 99284; J1815; J2405

== ENCOUNTER 2022-08-25 18:24 | Emergency (ER) | payer MEDICAID ==
[~2022-08-25] VITALS: Ht 167.6 cm; Wt 135.4 kg
[2022-08-25 19:46] VITALS: BP 150/99
== END 2022-08-25 20:14 | disposition home or self-care (01) ==
LOC: ER 18:24
DX: J45.909 Unspecified asthma, uncomplicated (principal); E11.9 Type 2 diabetes mellitus without complications; E78.5 Hyperlipidemia, unspecified; I10 Essential (primary) hypertension; Z20.2 Contact with and (suspected) exposure to infections with a predominantly sexual mode of transmission

== ENCOUNTER 2023-03-22 12:17 | Emergency (ER) | payer MEDICAID ==
[~2023-03-22] VITALS: Ht 167.6 cm; Wt 125.0 kg
[2023-03-22] MEDS ORDERED: DONNATAL 5ml ORAL Elix (BELLADONNA ALK-PHENOBARB) PO ONE (13:15)
[2023-03-22] MEDS ORDERED: ONDANSETRON ODT 4 MG TAB PO ONE (13:15)
[2023-03-22] MEDS ORDERED: MAALOX PLUS or MAALOX 30 ML PO ONE (13:15)
[2023-03-22 13:31] LABS: Basophils # (auto) 0 10 ^3/uL (0-0.2); Basophils % (auto) 0.2 % (0.0-2.0); Eosinophils # (auto) 0 10 ^3/uL (0-0.8); Eosinophils % (auto) 0.4 % (0.0-7.0); Hemoglobin 12.6 g/dL (12.2-16.2); Monocytes # (auto) 0.6 10 ^3/uL (0-1.3); White Blood Cell 9.8 10^3/uL (4.4-10.8)
[2023-03-22 13:33] LABS: Hematocrit 38.7 % (36.0-46.0); Lymphocytes # (auto) 0.8 10 ^3/uL (0.4-5.4); Lymphocytes % (auto) 8.3 % (10.0-50.0); Mean Corpuscular Hemoglobin 24.1 pg (28.0-32.0); Mean Corpuscular Hgb Conc. 32.4 g/dL (32.0-36.0); Mean Corpuscular Volume 74.5 fL (80.0-100.0); Monocytes % (auto) 6.1 % (0.0-12.0); Neutrophils # (auto) 8.4 10 ^3/uL (1.6-8.6); Nucleated Red Blood Cells % 0.4 %; Red Cell Distribution Width 16.5 % (11.8-14.3)
[2023-03-22] MEDS: LIDOCAINE VISCOUS 2% 15ML UD PO ONE ×2 (13:38→13:39)
[2023-03-22] MEDS ORDERED: ACETAMINOPHEN 325 MG TAB PO ONE (13:45)
[2023-03-22 13:49] LABS: Urine Bacteria NONE SEEN /hpf (None Seen); Urine Blood Negative /uL (Negative); Urine Specific Gravity 1.017 (1.001-1.035); Urine WBC 1 /hpf (0 - 5)
[2023-03-22 14:20] LABS: Albumin 3.9 g/dL (3.4-5.0); BUN/Creatinine Ratio 10.3 (10.0-20.0); Bilirubin, Total 0.7 mg/dL (0.2-1.0); Calcium 8.3 mg/dL (8.5-10.1); Total Protein 8.1 g/dL (6.4-8.2)
[2023-03-22 17:04] VITALS: BP 122/77
== END 2023-03-22 17:05 | disposition home or self-care (01) ==
LOC: ER 12:17
DX: R10.84 Generalized abdominal pain (principal); J45.909 Unspecified asthma, uncomplicated; E11.9 Type 2 diabetes mellitus without complications; K21.9 Gastro-esophageal reflux disease without esophagitis; E78.5 Hyperlipidemia, unspecified; I10 Essential (primary) hypertension
CPT/HCPCS: 36415; 74022; 80053; 81001; 82962; 83690; 85025; 85048; 87045; 87427; 99284; Q0162

== ENCOUNTER 2023-08-03 12:17 | Emergency (ER) | payer MEDICAID ==
[~2023-08-03] VITALS: Ht 167.6 cm; Wt 138.2 kg
[2023-08-03 13:43] LABS: Basophils # (auto) 0.1 10 ^3/uL (0-0.2); Eosinophils # (auto) 0.1 10 ^3/uL (0-0.8); Lymphocytes # (auto) 2.2 10 ^3/uL (0.4-5.4); Monocytes # (auto) 0.7 10 ^3/uL (0-1.3)
[2023-08-03 13:46] LABS: Basophils % (auto) 0.6 % (0.0-2.0); Eosinophils % (auto) 1.1 % (0.0-7.0); Hematocrit 34.6 % (36.0-46.0); Hemoglobin 11.3 g/dL (12.2-16.2); Lymphocytes % (auto) 22.6 % (10.0-50.0); Mean Corpuscular Hgb Conc. 32.7 g/dL (32.0-36.0); Mean Corpuscular Volume 70.3 fL (80.0-100.0); Monocytes % (auto) 6.7 % (0.0-12.0); Neutrophils # (auto) 6.8 10 ^3/uL (1.6-8.6); Red Blood Cells 4.92 10^6/uL (4.0-5.20); Red Cell Distribution Width 16.3 % (11.8-14.3); White Blood Cell 9.8 10^3/uL (4.4-10.8)
[2023-08-03 14:01] LABS: Alanine Aminotransferase 32 U/L (7-40); Albumin 4.1 g/dL (3.2-4.8); Alkaline Phosphatase 70 U/L (46-116); Anion Gap 7 (5-15); Aspartate Aminotransferase 18 U/L (13-40); BUN/Creatinine Ratio 8.6 (10.0-20.0); Blood Urea Nitrogen 7 mg/dL (9-23); Calcium 9.3 mg/dL (8.5-10.1); Carbon Dioxide 26 mmol/L (20-30); Chloride 106 mmol/L (98-107); Glucose 139 mg/dL (74-106); Potassium 4.2 mmol/L (3.5-5.1); Sodium 139 mmol/L (136-145)
[2023-08-03 14:02] LABS: Bilirubin, Total 0.6 mg/dL (0.2-1.0)
[2023-08-03 14:25] LABS: Giant Platelets Few; Hypochromia Moderate; Platelet Estimate Adequate
[2023-08-03 15:37] LABS: Urine Bacteria NONE SEEN /hpf (None Seen); Urine Blood Negative /uL (Negative); Urine Clarity HAZY (Clear); Urine Color Colorless (Yellow); Urine Protein, UAD Negative (Negative); Urine Specific Gravity 1.007 (1.001-1.035); Urine Urobilinogen Normal (Negative); Urine WBC 1 /hpf (0 - 5)
[2023-08-03] MEDS ORDERED: CEPH250C PO (15:57)
[2023-08-03] MEDS ORDERED: CLIN300C70 PO (15:57)
[2023-08-03 16:17] VITALS: BP 146/92; PULSE 100; RESP 18; TEMP 98.8; O2SAT 100
== END 2023-08-03 16:21 | disposition home or self-care (01) ==
LOC: ER 12:17
DX: L02.214 Cutaneous abscess of groin (principal); R42 Dizziness and giddiness; I10 Essential (primary) hypertension; E11.9 Type 2 diabetes mellitus without complications; K21.9 Gastro-esophageal reflux disease without esophagitis; E78.5 Hyperlipidemia, unspecified; J45.909 Unspecified asthma, uncomplicated
CPT/HCPCS: 36415; 80053; 81001; 84484; 85025; 93005

== ENCOUNTER 2024-07-20 17:00 | Emergency (ER) | payer MEDICAID, SELFPAY ==
[~2024-07-20] VITALS: Ht 167.6 cm; Wt 141.9 kg
[~2024-07-20 17:00] MED LIST changes: +CEPH250C PO; +CLIN1CAP70 PO
[2024-07-20 17:46] LABS: Urine Bacteria None Seen /hpf (None Seen)
[2024-07-20 17:59] LABS: Urine Blood 3+ /uL (Negative); Urine Clarity Clear (Clear); Urine Color Light-Yellow (Yellow); Urine Protein, UAD Negative (Negative); Urine Specific Gravity 1.012 (1.001-1.035); Urine Urobilinogen Normal (Negative); Urine WBC 2 /hpf (0 - 5)
[2024-07-20 19:00] LABS: Rapid Influenza A Negative (Negative); Rapid Influenza B Negative (Negative)
[2024-07-20 19:00] LABS: COVID19 ANTIGEN SOFIA FIA NEGATIVE (NEGATIVE)
[2024-07-20] MEDS ORDERED: ZOFR4T PO (20:27)
[2024-07-20] MEDS: ONDANSETRON ODT 4 MG TAB PO ONE (22:36)
[2024-07-20 22:41] VITALS: BP 142/97; PULSE 64; RESP 16; O2SAT 97
== END 2024-07-20 22:43 | disposition home or self-care (01) ==
LOC: ER 17:00
DX: B34.9 Viral infection, unspecified (principal); I10 Essential (primary) hypertension; E78.5 Hyperlipidemia, unspecified; E11.9 Type 2 diabetes mellitus without complications; K21.9 Gastro-esophageal reflux disease without esophagitis; J45.909 Unspecified asthma, uncomplicated; E66.01 Morbid (severe) obesity due to excess calories; Z68.43 Body mass index [BMI] 50.0-59.9, adult; Z79.899 Other long term (current) drug therapy; Z20.822 Contact with and (suspected) exposure to COVID-19
CPT/HCPCS: 36415; 81001; 82962; 87426; 87804; 99283; Q0162

== ENCOUNTER 2025-02-15 11:57 | Emergency (ER) | payer SELFPAY ==
[~2025-02-15] VITALS: Ht 167.6 cm; Wt 134.2 kg
[~2025-02-15 11:57] MED LIST changes: +ZOFR4T PO
[2025-02-15 12:33] VITALS: BP 147/101; PULSE 106; RESP 16; TEMP 97.7; O2SAT 95
[2025-02-15] MEDS ORDERED: INSLANTI SC (12:57)
--- NOTE | 2025-02-15 12:58 | ED.PDOC ---
History of Present Illness HPI Comments This is a 29-year-old female that comes in for medication refill. She was told that she originally was on Lantus 60 units q.h.s.. It was recently changed to semaglutide but because that medicine caused 900 dollars she could not take it. She also does not have that dosing that she was supposed to take. She states that she has not really had any symptoms she wants to have her blood sugar checked here to make sure. Chief Complaint: Diabetes Time Seen by MD: 12:51 Primary Care Provider: NICOLAS Chan Notes: Nurses Notes, Medications, Allergies Allergies: Coded Allergies: NO KNOWN ALLERGIES (Unverified , 08/29/18) Home Meds Active Scripts Ondansetron Odt 4MG Tab (ZOFRAN PO) 4 Mg Tb, 4 MG PO Q6HP PRN, #20 TAB ODT TAB-DISSOLVE IN MOUTH, THEN SWALLOW Prov:PIERO LONG PAC 07/20/24 Clindamycin Hcl (Clindamycin Hcl) 300 Mg Cap, 1 CAP PO TID for 10 Days, #30 CAP Prov:ROSMERY MAE MD 08/03/23 Cephalexin (KEFLEX CAPSULE) 250 Mg Cp, 250 MG PO QID for 10 Days, #40 BOTTLE Prov:ROSMERY MAE MD 08/03/23 Reported Medications Insulin Isophane & Reg (Human) (Humulin 70/30 (70-30) 100 Unit/ml) 1 Units/0.01 Ml Inj, 1 UNITS SC, INJ 12/11/20 Atorvastatin Calcium (ATORVASTATIN CALCIUM) 10 Mg Tab, 1 TAB PO DAILY, #30 TAB 5 Refills 12/11/20 Insulin Glargine (Lantus) 100 Unit/Ml Inj, 100 UNIT SC, INJ 12/11/20 Insulin Glargine (Lantus) 100 Unit/Ml Inj, 100 UNIT SC, INJ 08/30/18 Information Source: Patient Mode of Arrival: Ambulatory Past Medical History PAST MEDICAL HISTORY: Asthma, DM, GERD, High Lipids, HTN Surgical History: Denies all surgeries 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 Family History Family History: Reviewed,noncontributory to illness Social History Smoker: Non-Smoker Alcohol: Occasionally Drugs: Denies Drug Use Lives In: Home Endocrine: reports: others (no insulin for 1 month) Physical Exam General Appearance: No Apparent Distress, Normal, Obese HEENT: Normal ENT Inspection, PERRL/EOMI, Pharynx Normal, TMs Normal Neck: Full Range of Motion, Non-Tender, Normal Inspection, Supple Respiratory: Lungs Clear, Normal Breath Sounds Cardiovascular: Regular Rate/Rhythm Breast Exam: Deferred Gastrointestinal: Non Tender, Normal Bowel Sounds, Soft Genitalia: Deferred Pelvic: Deferred Rectal: Deferred Extremities: Normal inspection, Normal range of motion Neurologic: Alert, No Motor Deficits, Normal Affect, No Sensory Deficits Cerebellar Function: NOT DONE Reflexes: Normal Skin: Dry, Normal Color, Warm Lymphatic: No Adenopathy Was a procedure done? Was a procedure done?: No Differential Dx Considerations may include: Hyperglycemia X-Ray, Labs, Meds, VS Vital Signs Date Time Temp Pulse Resp B/P (MAP) Pulse Ox O2 Delivery O2 Flow Rate FiO2 02/15/25 12:33 106 16 95 Room Air 02/15/25 12:33 97.7 103 16 147/101 (116) 95 97.7 02/15/25 12:09 97.7 106 16 147/101 (116) 95 97.7 X-Ray, Labs, Meds, VS Comment Patient seen and examined by me. Patient is here primarily for a medication refill her Accu-Chek here is 180. She is supposed to be on semaglutide but it was costing 900 dollars a month so she never filled the prescription. She is requesting a refill for her Lantus which she takes 60 units every night to get her back to her normal blood sugar. No other physical complaints. I will refill her insulin. Told her she will have to talk to her doctor about substitu ting that medicine if because of the cost. Time of 1ST Reevaluation: 12:54 Reevaluation 1ST: Unchanged Patient Education/Counseling: Diagnosis, Treatment, Prognosis, Need For Follow Up Family Education/Counseling: No Family Present Departure 1 Departure Time of Disposition: 12:55 Impression: Primary Impression: Diabetes 1.5, managed as type 1 Additional Impression: Encounter for medication refill Disposition: 01 HOME / SELF CARE / HOMELESS Condition: Good Additional Instructions: Please start using the Lantus tonight Your blood sugar right now is 180 Continue to do a low-carbohydrate low sugar diet Drink lot of liquids e-Prescriptions Insulin Glargine (Lantus) 100 Unit/Ml Inj 60 UNIT SC QHSP PRN for 30 Days, #1 INJ Prov: MATTHEW CRUZ 02/15/25 Discharged With: Self Critical Care Note Critical Care Time?: No Stability Stability form required: MATTHEW Gibbs Feb 15, 2025 12:58
== END 2025-02-15 12:58 | disposition home or self-care (01) ==
LOC: ER 11:57
DX: E10.9 Type 1 diabetes mellitus without complications (principal); I10 Essential (primary) hypertension; J45.909 Unspecified asthma, uncomplicated; E78.5 Hyperlipidemia, unspecified; Z76.0 Encounter for issue of repeat prescription; Z79.4 Long term (current) use of insulin; Z79.899 Other long term (current) drug therapy
CPT/HCPCS: 82947; 82962

== ENCOUNTER 2025-04-15 09:49 | Emergency (ER) | payer MEDICAID, SELFPAY ==
[~2025-04-15] VITALS: Ht 160 cm; Wt 136.1 kg
[2025-04-15 10:24] LABS: Urine Bacteria None Seen /hpf (None Seen)
[2025-04-15 10:31] LABS: Urine Blood 3+ /uL (Negative); Urine Clarity Turbid (Clear); Urine Color Colorless (Yellow); Urine Mucus FEW (None Seen); Urine Protein, UAD TRACE (Negative); Urine Specific Gravity 1.025 (1.001-1.035); Urine Squamous Epithelial Cell MOD /hpf (<5); Urine Urobilinogen Normal (Negative); Urine WBC 30 /HPF (0-5); Urine pH 5.5 (5.0-9.0)
[2025-04-15 10:42] LABS: Basophils # (auto) 0.1 10 ^3/uL (0-0.2); Eosinophils # (auto) 0.2 10 ^3/uL (0-0.8); Eosinophils % (auto) 2.3 % (0.0-7.0); Hematocrit 40.6 % (36.0-46.0); Hemoglobin 13.6 g/dL (12.2-16.2); Lymphocytes # (auto) 1.7 10 ^3/uL (0.4-5.4); Lymphocytes % (auto) 22.9 % (10.0-50.0); Mean Corpuscular Hemoglobin 26.9 pg (28.0-32.0); Mean Corpuscular Hgb Conc. 33.6 g/dL (32.0-36.0); Monocytes # (auto) 0.5 10 ^3/uL (0-1.3); Monocytes % (auto) 6.2 % (0.0-12.0); Neutrophils % (auto) 67.6 % (37.0-80.0); Nucleated Red Blood Cells % 0.1 %; Platelet Count (auto) 127 10^3/uL (140-450); Red Blood Cells 5.07 10^6/uL (4.0-5.20); Red Cell Distribution Width 14.4 % (11.8-14.3); White Blood Cell 7.4 10^3/uL (4.4-10.8)
--- NOTE | 2025-04-15 10:54 | ED.PDOC ---
General HPI Comments 29-year-old female presents with a chief complaint of urinary frequency, excessive thirst/dry mouth, poor appetite, and medication noncompliance. Patient states that she lost her job and health insurance in February and has been unable to take her insulin due to cost. Patient just received [facility] insurance and is requesting a medication refill on her insulin. Patient mentions that her symptoms have been an increase in urination and feeling like she is excessively thirsty. Patient relays that she also has been having a poor appetite. Patients blood sugar in triage was 345. Patient states she takes Lantus 60 units subQ at nighttime and she is requesting for a refill. PMHx: HTN, DM, HLD, Asthma, GERD PSHx: Denies Allergies: NKDA HPI: Poor Historian. REVIEW OF SYSTEMS: CONSTITUTIONAL: Denies acute: fever, diaphoresis, chills, generalized weakness. HEAD: Denies acute: headache, photophobia Eyes: Denies acute: Double vision, vision loss, eye pain, eye discharge. EARS: Denies acute: tinnitus, hearing loss, ear discharge, ear pain, THROAT: Denies acute: sore throat, swelling, difficulty swallowing , pain with swallowing, change in voice. NECK: Denies acute: neck pain, neck swelling, stiff neck. HEART: Denies acute : chest pain, palpitations, LUNGS: Denies acute: SOB, wheezing, cough, hemoptysis ABDOMEN: Denies acute: abdominal pain, Nausea, Vomiting, diarrhea, melena , hematemesis, hematochezia SKIN: Denies acute: rash, redness, lesions, itchiness. EXTREMITIES: Denies acute: calf pain, numbness, tingling, weakness, denies pain in extremity. Denies acute: Low back pain. Neuro: Denies acute: focal neurological deficit, motor or sensory focal neurological deficit, tremors, seizure like activity, confusion, dizziness, change in mental status, loss of bowel or bladder function, cauda equina like symptoms. : Denies acute: dysuria, hematuria, flank pain, increase in urinary frequency. PSYCH: Denies acute: hallucination, suicidal ideation, homicidal ideation. FEMALE: Denies acute: abnormal vaginal bleeding, foul odor, unusual discharge. PHYSICAL EXAM: General: -----minimal---acute distress, awake and alert. Head: normocephalic, atraumatic. Neck: supple, trachea is midline, no swelling. Throat: Normal phonation. Eyes:, no erythema, no purulent discharge, no proptosis, no icterus. Heart: regular rate, regular rhythm, no significant murmur appreciated. Lungs: no apparent respiratory distress, Able to speak in full sentences. No wheezing, no rhonchi, no crackles. No stridors Clear to auscultation bilaterally. Abdomen: non tender to palpation, non distended, soft, no guarding, no rebound, + bowel sounds. Neuro: Awake, Alert, oriented to name, self, situation, follows commands GCS=15. Speech is normal. Skin: no petechia, no purpura, no cyanosis, non-pale, not jaundice. Lower extremities: --no - Pitting edema no deformity, no focal swelling, no calf TTP. Makes eye contact. moves all four extremities. Face: no apparent facial droop. Ambulating in the ED independently. No nuchal rigidity, Kernig's sign, Brudzinski's sign, no meningeal signs. ED COURSE: Chief Complaint: Hyperglycemia Time Seen by MD: 10:19 Primary Care Provider: NICOLAS Chan notes: Medications, Allergies Allergies: Coded Allergies: NO KNOWN ALLERGIES (Unverified , 08/29/18) Home Meds Active Scripts Insulin Glargine (Lantus) 100 Unit/Ml Inj, 60 UNIT SC QHSP PRN for 30 Days, #1 INJ Prov:TEODORO BOURGEOIS DO 04/15/25 Nitrofurantoin Monohydrate Mac (Macrobid) 100 Mg Cap, 100 MG PO BID for 7 Days, #14 CAP Prov:TEODORO BOURGEOIS DO 04/15/25 Insulin Glargine (Lantus) 100 Unit/Ml Inj, 60 UNIT SC QHSP PRN for 30 Days, #1 INJ Prov:MATTHEW CRUZ SUGAR CANE GROWER 02/15/25 Ondansetron Odt 4MG Tab (ZOFRAN PO) 4 Mg Tb, 4 MG PO Q6HP PRN, #20 TAB ODT TAB-DISSOLVE IN MOUTH, THEN SWALLOW Prov:PIERO LONG PAC 07/20/24 Clindamycin Hcl (Clindamycin Hcl) 300 Mg Cap, 1 CAP PO TID for 10 Days, #30 CAP Prov:ROSMERY MAE MD 08/03/23 Cephalexin (KEFLEX CAPSULE) 250 Mg Cp, 250 MG PO QID for 10 Days, #40 BOTTLE Prov:ROSMERY MAE MD 08/03/23 Reported Medications Insulin Isophane & Reg (Human) (Humulin 70/30 (70-30) 100 Unit/ml) 1 Units/0.01 Ml Inj, 1 UNITS SC, INJ 12/11/20 Atorvastatin Calcium (ATORVASTATIN CALCIUM) 10 Mg Tab, 1 TAB PO DAILY, #30 TAB 5 Refills 12/11/20 Insulin Glargine (Lantus) 100 Unit/Ml Inj, 100 UNIT SC, INJ 12/11/20 Insulin Glargine (Lantus) 100 Unit/Ml Inj, 100 UNIT SC, INJ 08/30/18 Information Source: Patient Mode of Arrival: Ambulatory Past Medical History PAST MEDICAL HISTORY: Asthma, DM, GERD, High Lipids, HTN Surgical History: Denies all surgeries 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 Was a procedure done?: No Differential Diagnosis Kidney stone (Female): N/A Urinary Problem (Female): Pyelonephritis, UTI, Other (DKA, hyperosmolar state, electrolyte abnormality, dehydration) X-Ray, Labs, Meds, VS Vital Signs Date Time Temp Pulse Resp B/P (MAP) Pulse Ox O2 Delivery O2 Flow Rate FiO2 04/15/25 14:12 98.0 84 20 142/100 (114) 97 98.0 04/15/25 12:01 98.4 82 18 148/94 (112) 100 98.4 04/15/25 12:01 82 18 100 Room Air* 0 21 04/15/25 10:00 98.0 92 17 149/98 (115) 99 98.0 Lab Test 04/15/25 16:37 04/15/25 15:15 04/15/25 14:51 04/15/25 13:58 Range/Units Lactic Acid Level 1.7 2.2 *H 0.4-2.0 mmol/L POC Glucose 234 H 238 H 70-106 mg/dl Test 04/15/25 12:53 04/15/25 11:59 04/15/25 10:28 04/15/25 10:20 Range/Units Lactic Acid Level 2.8 *H 3.6 *H 0.4-2.0 mmol/L POC Glucose 316 H 70-106 mg/dl White Blood Count 7.4 4.4-10.8 10^3/uL Red Blood Count 5.07 4.0-5.20 10^6/uL Hemoglobin 13.6 12.2-16.2 g/dL Hematocrit 40.6 36.0-46.0 % Mean Corpuscular Volume 80.0 80.0-100.0 fL Mean Corpuscular Hemoglobin 26.9 L 28.0-32.0 pg Mean Corpuscular Hemoglobin Concent 33.6 32.0-36.0 g/dL Red Cell Distribution Width 14.4 H 11.8-14.3 % Platelet Count 127 L 140-450 10^3/uL Mean Platelet Volume 10.8 6.9-10.8 fL Neutrophils (%) (Auto) 67.6 37.0-80.0 % Lymphocytes (%) (Auto) 22.9 10.0-50.0 % Monocytes (%) (Auto) 6.2 0.0-12.0 % Eosinophils (%) (Auto) 2.3 0.0-7.0 % Basophils (%) (Auto) 1.0 0.0-2.0 % Neutrophils # (Auto) 5.0 1.6-8.6 10 ^3/uL Lymphocytes # (Auto) 1.7 0.4-5.4 10 ^3/uL Monocytes # (Auto) 0.5 0-1.3 10 ^3/uL Eosinophils # (Auto) 0.2 0-0.8 10 ^3/uL Basophils # (Auto) 0.1 0-0.2 10 ^3/uL Nucleated Red Blood Cells 0.1 % Platelet Estimate Decreased Giant Platelets Few Sodium Level 138 136-145 mmol/L Potassium Level 4.0 3.5-5.1 mmol/L Chloride Level 103 98-107 mmol/L Carbon Dioxide Level 21 20-31 mmol/L Anion Gap 14 5-15 Blood Urea Nitrogen < 5 L 9-23 mg/dL Creatinine 0.96 0.550-1.02 mg/dL Glomerular Filtration Rate Calc 82 >90 mL/min BUN/Creatinine Ratio 5.2 L 10.0-20.0 Serum Glucose 348 H 74-106 mg/dL Calcium Level 9.8 8.7-10.4 mg/dL Total Bilirubin 0.6 0.2-1.0 mg/dL Aspartate Amino Transferase (AST) 26 13-40 U/L Alanine Aminotransferase (ALT) 34 7-40 U/L Alkaline Phosphatase 71 46-116 U/L Total Protein 7.6 5.7-8.2 g/dL Albumin 4.5 3.2-4.8 g/dL Test 04/15/25 10:09 04/15/25 10:05 Range/Units Urine Color Colorless Yellow Urine Clarity Turbid H Clear Urine pH 5.5 5.0-9.0 Urine Specific [place] 1.025 1.001-1.035 Urine Protein Trace H Negative Urine Ketones Negative Negative Urine Blood 3+ H Negative /uL Urine Nitrite Negative Negative Urine Bilirubin Negative Negative Urine Urobilinogen Normal Negative mg/dL Urine Leukocyte Esterase 1+ Negative /uL Urine RBC 2209 0 - 4 /hpf Urine Microscopic WBC 30 H 0-5 /HPF Urine Squamous Epithelial Cells Mod <5 /hpf Urine Bacteria None seen None Seen /hpf Urine Mucus Few None Seen Urine Glucose 4+ H Normal mg/dL POC Glucose 345 H 70-106 mg/dl Current Medications Medications (Trade) Dose Ordered Sig/Maddie Route Start Time Stop Time Status Last Admin Sodium Chloride 1,000 ml @ 1,000 mls/hr Q1H ONCE IV 04/15/25 10:30 04/15/25 11:29 DC 04/15/25 12:18 Ceftriaxone Sodium 50 ml @ 100 mls/hr ONCE ONCE IV 04/15/25 11:15 04/15/25 11:44 DC 04/15/25 12:18 Insulin Human Regular (InsuLIN R) 5 units ONCE ONCE IV 04/15/25 11:45 04/15/25 11:46 DC 04/15/25 12:19 Sodium Chloride 1,000 ml @ 1,000 mls/hr Q1H ONCE IV 04/15/25 14:00 04/15/25 14:59 DC 04/15/25 14:25 Sodium Chloride 1,000 ml @ 1,000 mls/hr Q1H ONCE IV 04/15/25 15:30 04/15/25 16:29 DC 04/15/25 15:32 Time of 1ST Reevaluation: 10:49 Reevaluation 1ST: Unchanged Time of 2ND Reevaluation: 00:00 Reevaluation 2ND: Resolved Patient Education/Counseling: Diagnosis, Treatment Family Education/Counseling: No Family Present Comments Patient presented with the above HPI.---hyperglycemia---workup was initiated. patient was found with the above mentioned diagnosis. the following medications were ordered: please refer to order lists of meds and tests obtained by myself Dr. Bourgeois. Patient ED course and VS have been stabilized. Patient has been reassessed in the ED and remained in a stable condition. Pertinent incidental findings were discussed with the patient and/or family. Patient/family voices understanding and is agreeable with plan. Patient has been observed in the ED adequate length of time to insure improvement/stability. Escalation of care considered: Consideration of escalation to observation or admission Patient was given multiple fluid boluses. Lactic acid elevation resolved. Patient requested insulin Lantus medication refill. Patient was found with a UTI. Antibiotics given. Patient was DISCHARGED home in a stable condition. All the reports of any imaging studies that were ordered by myself were reviewed by myself. Departure 1 Departure Time of Disposition: 11:38 Impression: Primary Impression: UTI (urinary tract infection) Additional Impressions: Hyperglycemia due to diabetes mellitus Thrombocytopenia Encounter for medication refill Disposition: HOME / SELF CARE / HOMELESS Condition: Stable Additional Instructions: Additional instructions: You MUST follow-up with your primary care/family doctor in 1 to 2 days. If you are unable to see your primary care/family doctor, please return to our emergency room for re-assessment and re-evaluation in 1 to 2 days. Return to the emergency room here in our facility or to the nearest [facility] if your symptoms change or worsen. CONSULTATIONS: you MUST Follow-up for consultation as soon as possible with: -endocrinology and Hematology in 1-2 days. Please call for appointment You MUST call the consultants office yourself to make an appointment. You may need to arrange that through your insurance and/or your primary/family doctor. If you are unable to see the heritage consultant in 1 to 2 days, you must return to our emergency room (or any other ER of your choice) for re-assessment and re- evaluation. Adequate fluid hydration. Monitor blood pressure at home closely at least 3 times a day. Your platelets are low and they still need to be further worked up by a carbide powder processor. e-Prescriptions Insulin Glargine (Lantus) 100 Unit/Ml Inj 60 UNIT SC QHSP PRN for 30 Days, #1 INJ Prov: TEODORO BOURGEOIS DO 04/15/25 Nitrofurantoin Monohydrate Mac (Macrobid) 100 Mg Cap 100 MG PO BID for 7 Days, #14 CAP Prov: TEODORO BOURGEOIS DO 04/15/25 Discharged With: Self Critical Care Note Critical Care Time?: No I personally scribed for TEODORO BOURGEOIS DO ([email or web address]) on 04/15/25 at 10:54. Electronically submitted by Gopi Prakash ([email or web address]). TEODORO BOURGEOIS DO Apr 15, 2025 10:54
[2025-04-15 10:56] LABS: Alanine Aminotransferase 34 U/L (7-40); Albumin 4.5 g/dL (3.2-4.8); Alkaline Phosphatase 71 U/L (46-116); Anion Gap 14 (5-15); Aspartate Aminotransferase 26 U/L (13-40); Bilirubin, Total 0.6 mg/dL (0.2-1.0); Calcium 9.8 mg/dL (8.7-10.4); Carbon Dioxide 21 mmol/L (20-31); Chloride 103 mmol/L (98-107); Sodium 138 mmol/L (136-145); Total Protein 7.6 g/dL (5.7-8.2)
[2025-04-15 10:57] LABS: BUN/Creatinine Ratio 5.2 (10.0-20.0); Blood Urea Nitrogen < 5 mg/dL (9-23); Glucose 348 mg/dL (74-106)
[2025-04-15 11:09] LABS: Lactic Acid w/Reflex 3.6 mmol/L (0.4-2.0)
[2025-04-15 11:28] LABS: Giant Platelets Few; Platelet Estimate Decreased
[2025-04-15 12:01] VITALS: PULSE 82; RESP 18; O2SAT 100
[2025-04-15] MEDS: cefTRIAXone 1GM/50ML D5W 50 ML IV ONE (12:18)
[2025-04-15] MEDS: SODIUM CHLORIDE 0.9% 1,000 ML IV ONE ×3 (12:18→15:32)
[2025-04-15] MEDS: InsuLIN REG 1unit/0.01ml Soln (100units/ml) IV ONE (12:19)
[2025-04-15] MEDS ORDERED: NITR-87 PO (12:38)
[2025-04-15 14:12] VITALS: BP 142/100; PULSE 84; RESP 20; TEMP 98; O2SAT 97
[2025-04-15] MEDS ORDERED: INSLANTI SC (15:18)
[2025-04-15 15:26] LABS: Lactic Acid w/Reflex 2.2 mmol/L (0.4-2.0)
== END 2025-04-15 17:34 | disposition home or self-care (01) ==
LOC: ER 09:49
DX: N39.0 Urinary tract infection, site not specified (principal); E11.65 Type 2 diabetes mellitus with hyperglycemia; D69.6 Thrombocytopenia, unspecified; J45.909 Unspecified asthma, uncomplicated; E78.5 Hyperlipidemia, unspecified; I10 Essential (primary) hypertension; Z76.0 Encounter for issue of repeat prescription; Z79.4 Long term (current) use of insulin; Z79.899 Other long term (current) drug therapy
CPT/HCPCS: 36415; 80053; 81001; 82947; 83605; 85025; 96361; 96365; 96375; 99284; J0696; J1815; J7030; 82962

== ENCOUNTER 2025-10-24 08:21 | Emergency (ER) | payer MEDICAID ==
[~2025-10-24] VITALS: Ht 167.6 cm; Wt 144.0 kg
[~2025-10-24 08:21] MED LIST changes: +NITR-87 PO
[2025-10-24] MEDS: SODIUM CHLORIDE 0.9% 1,000 ML IV ONE (09:00)
--- NOTE | 2025-10-24 09:15 | ED.PDOC ---
HPI Allergic reaction HPI Comments This is a 30 year old female presenting to the ED with chief complaint of lip swelling. Patient reports that she has been experiencing lip swelling with associated pain, dry skin, and discharge for the past 3 days after applying lip oil. Patient relays that she has had a similar episode in the past, but it had self resolved. Patient denies any throat swelling, SOB, numbness, or rashes. Chief Complaint: Face pain Time Seen by MD: 09:13 Primary Care Provider: NICOLAS Chan Notes: Nurses Notes, Medications, Allergies Allergies: Coded Allergies: NO KNOWN ALLERGIES (Unverified , 08/29/18) Home Meds Active Scripts Insulin Glargine (Lantus) 100 Unit/Ml Inj, 60 UNIT SC QHSP PRN for 30 Days, #1 INJ Prov:TEODORO BOURGEOIS DO 04/15/25 Nitrofurantoin Monohydrate Mac (Macrobid) 100 Mg Cap, 100 MG PO BID for 7 Days, #14 CAP Prov:TEODORO BOURGEOIS DO 04/15/25 Insulin Glargine (Lantus) 100 Unit/Ml Inj, 60 UNIT SC QHSP PRN for 30 Days, #1 INJ Prov:MATTHEW CRUZ AIRCRAFT CLEANER 02/15/25 Ondansetron Odt 4MG Tab (ZOFRAN PO) 4 Mg Tb, 4 MG PO Q6HP PRN, #20 TAB ODT TAB-DISSOLVE IN MOUTH, THEN SWALLOW Prov:PIERO LONG PAC 07/20/24 Clindamycin Hcl (Clindamycin Hcl) 300 Mg Cap, 1 CAP PO TID for 10 Days, #30 CAP Prov:ROSMERY MAE MD 08/03/23 Cephalexin (KEFLEX CAPSULE) 250 Mg Cp, 250 MG PO QID for 10 Days, #40 BOTTLE Prov:ROSMERY MAE MD 08/03/23 Reported Medications Insulin Isophane & Reg (Human) (Humulin 70/30 (70-30) 100 Unit/ml) 1 Units/0.01 Ml Inj, 1 UNITS SC, INJ 12/11/20 Atorvastatin Calcium (ATORVASTATIN CALCIUM) 10 Mg Tab, 1 TAB PO DAILY, #30 TAB 5 Refills 12/11/20 Insulin Glargine (Lantus) 100 Unit/Ml Inj, 100 UNIT SC, INJ 12/11/20 Insulin Glargine (Lantus) 100 Unit/Ml Inj, 100 UNIT SC, INJ 08/30/18 Information Source: Patient Mode of Arrival: Ambulatory Severity: Moderate Rash: Moderate SOB: None Difficulty swallowing: None Pruritus: Moderate Timing: Days Duration: Since onset Prehospital treatment: None Location: Lips Exposed to: Cosmetic Developed: Pruritus, Rash History of: Prior Similar Episodes Past Medical History PAST MEDICAL HISTORY: Asthma, DM, GERD, High Lipids, HTN Surgical History: Denies all surgeries IT RISK ANALYST History: Denies all IT RISK ANALYST Hx Family History Family History: Reviewed,noncontributory to illness Social History Smoker: Non-Smoker Alcohol: Occasionally Drugs: Denies Drug Use Lives In: Home Constitutional: denies: chills, diaphoresis, fatigue, fever, malaise, sweats, weakness, others EENTM: denies: blurred vision, double vision, ear bleeding, ear discharge, ear drainage, ear pain, ear ringing, eye pain, eye redness, hearing loss, mouth pain, mouth swelling, nasal discharge, nose bleeding, nose congestion, nose pain, photophobia, tearing, throat pain, throat swelling, voice changes, others Respiratory: denies: cough, hemoptysis, orthopnea, SOB at rest, shortness of breath, SOB with excertion, stridor, wheezing, others Cardiovascular: denies: chest pain, dizzy spells, diaphoresis, Dyspnea on exertion, edema, irregular heart beat, left arm pain, lightheadedness, palpitations, PND, syncope, others Gastrointestinal: denies: abdomen distended, abdominal pain, blood streaked bowels, constipated, diarrhea, dysphagia, difficulty swallowing, hematemesis, melena, nausea, poor appetite, poor fluid intake, rectal bleeding, rectal pain, vomiting, others Genitourinary: denies: abnormal vagina bleeding, burning, dyspareunia, dysuria, flank pain, frequency, hematuria, incontinence, pain, , vagina discharge, urgency, others Neurological: denies: dizziness, fainting, headache, left sided numbness, left sided weakness, numbness, paresthesia, pre-existing deficit, right sided numbness, right sided weakness, seizure, speech problems, tingling, tremors, weakness, others Musculoskeletal: denies: back pain, gout, joint pain, joint swelling, muscle pain, muscle stiffness, neck pain, others Integumetry: reports: rash (to lips with swelling, redness, and dry skin); denies: bruises, change in color, change in hair/nails, dryness, laceration, lesions, lumps, wounds, others Allergic/Immunocompromised: denies: Difficulty Healing, Frequent Infections, Hives, Itching, others Hematologic/Lymphatic: denies: anemia, blood clots, easy bleeding, easy bruising, swollen glands, others Endocrine: denies: excessive hunger, excessive sweating, excessive thirst, excessive urination, flushing, intolerance to cold, intolerance to heat, unexplained weight gain, unexplained weight loss, others Psychiatric: denies: anxiety, bipolar disorder, depression, hopeless, panic disorder, schizophrenia, sleepless, suicidal, others All Other Systems: Reviewed and Negative Physical Exam General Appearance: No Apparent Distress, Normal HEENT: Normal ENT Inspection, Pharynx Normal, TMs Normal Neck: Full Range of Motion, Non-Tender, Normal, Normal Inspection Respiratory: Chest Non-Tender, Lungs Clear, No Accessory Muscle Use, No Respiratory Distress, Normal Breath Sounds Cardiovascular: No Edema, No JVD, No Murmur, No Gallop, Normal Peripheral Pulses, Regular Rate/Rhythm Breast Exam: Deferred Gastrointestinal: No Organomegaly, Non Tender, No Pulsatile Mass, Normal Bowel Sounds, Soft Genitalia: Deferred Pelvic: Deferred Rectal: Deferred Extremities: No calf tenderness, Normal capillary refill, Normal inspection, Normal range of motion, Non-tender, No pedal edema Musculoskeletal : Apperance: Normal Neurologic: Alert, car unloader II-XII nml as Tested, No Motor Deficits, Normal Affect, Normal Mood, No Sensory Deficits Cerebellar Function: Normal Reflexes: Normal Skin: Dry, Normal Color, Warm, Other (Edema to lips. [place] clear.) Lymphatic: No Adenopathy Was a procedure done? Was a procedure done?: No Differential diagnosis (all) Differential Diagnosis: Shock X-Ray, Labs, Meds, VS Vital Signs Date Time Temp Pulse Resp B/P (MAP) Pulse Ox O2 Delivery O2 Flow Rate FiO2 10/24/25 10:42 87 19 96 Room Air 10/24/25 10:42 98.9 87 19 172/108 (129) 96 98.9 10/24/25 08:27 98.3 99 13 157/100 98.3 Current Medications Medications (Trade) Dose Ordered Sig/Maddie Route Start Time Stop Time Status Last Admin Methylprednisolone Sodium Succinate (Solu Medrol) 125 mg ONCE ONCE IV 10/24/25 09:00 10/24/25 09:01 DC 10/24/25 11:03 Famotidine (Pepcid Injection) 20 mg ONCE ONCE IV 10/24/25 09:00 10/24/25 09:01 DC 10/24/25 11:06 Diphenhydramine HCl (Benadryl Injection) 50 mg ONCE ONCE IV 10/24/25 09:00 10/24/25 09:01 DC 10/24/25 11:06 Time of 1ST Reevaluation: 10:10 Reevaluation 1ST: Unchanged Patient Education/Counseling: Diagnosis, Treatment Family Education/Counseling: No Family Present SEPSIS Sepsis Screen Date sepsis recognized/suspect: Oct 24, 2025 Time Sepsis recognized/suspect: 826 Recent Procedure: No On Antibiotic Therapy: No Respiratory Rate >20: No Heart Rate >90: Yes Temp<36 C (96.8 F) or >38.3 C: No SBP <90 or MAP <65 mmHG: No New Acute Mental Status Change: No Is the patient on CPAP, BIPAP,: No Vital Signs Date Time Temp Pulse Resp B/P (MAP) Pulse Ox O2 Delivery O2 Flow Rate FiO2 10/24/25 10:42 87 19 96 Room Air 10/24/25 10:42 98.9 87 19 172/108 (129) 96 98.9 10/24/25 08:27 98.3 99 13 157/100 98.3 Medications Medications Dose Ordered Sig/Maddie Route Start Time Stop Time Status Last Admin Dose Admin Diphenhydramine HCl 50 mg ONCE ONCE IV 10/24/25 09:00 10/24/25 09:01 DC 10/24/25 11:06 Famotidine 20 mg ONCE ONCE IV 10/24/25 09:00 10/24/25 09:01 DC 10/24/25 11:06 Methylprednisolone Sodium Succinate 125 mg ONCE ONCE IV 10/24/25 09:00 10/24/25 09:01 DC 10/24/25 11:03 Departure 1 Departure Time of Disposition: 12:04 (Patient likely had allergic reaction. Patient is feeling significantly better. We will discharge patient home with outpatient follow up.) Impression: Primary Impression: Allergic reaction Disposition: HOME / SELF CARE / HOMELESS Condition: Stable Additional Instructions: You had an allergic reaction. You received medications in the ER. You were prescribed steroids and an epinephrine pain. Please use as directed. You should follow up with your regular doctor within one week to ensure you are doing better. You may benefit from an appointment with an Wire Coating Machine Operator. If your symptoms worsen, or you have any other concerns then please return to the ER. e-Prescriptions Epinephrine (Anaphylaxis) (Auvi-Q) 0.1 Mg/0.1 Ml Inj 0.1 MG IJ O PRN for 1 Day, #1 INJ Prov: RUBINA ADAMS MD 10/24/25 Prednisone (Prednisone) 20 Mg Tab 40 MG PO DAILY for 5 Days, #10 MG Prov: RUBINA ADAMS MD 10/24/25 Discharged With: Self Critical Care Note Critical Care Time?: No Stability Stability form required: No Heart Score Heart Score: Heart Score Response (Comments) Value History N/A 0 EKG N/A 0 Age N/A 0 Risk Factors N/A 0 Troponin N/A 0 Total 0 I personally scribed for RUBINA ADAMS MD ([email or web address]) on 10/24/25 at 09:15. Electronically submitted by Magan Blutn ([email or web address]). RUBINA ADAMS MD Oct 24, 2025 09:15
[2025-10-24] MEDS: methylPREDNISolone SOD SUCC 125 MG/2 ML VL IV ONE (11:03)
[2025-10-24] MEDS: FAMOTIDINE (10MG/ML) 2ML VL IV ONE (11:06)
[2025-10-24] MEDS: diphenhydrAMINE HCL 50 MG/1 ML VL IV ONE (11:06)
[2025-10-24] MEDS ORDERED: EPIN0.1I11 IJ (12:07)
[2025-10-24] MEDS ORDERED: PRED20TA2 PO (12:07)
[2025-10-24 12:39] VITALS: BP 164/98; PULSE 86; RESP 18; TEMP 98.6; O2SAT 98
== END 2025-10-24 12:41 | disposition home or self-care (01) ==
LOC: ER 08:21
DX: T78.40XA Allergy, unspecified, initial encounter (principal); F10.90 Alcohol use, unspecified, uncomplicated; J45.909 Unspecified asthma, uncomplicated; I10 Essential (primary) hypertension; E11.9 Type 2 diabetes mellitus without complications; E78.5 Hyperlipidemia, unspecified; Z79.899 Other long term (current) drug therapy; X58.XXXA Exposure to other specified factors, initial encounter
CPT/HCPCS: 96374; 96375; 99284; J1200; J2919; J3490